=== PATIENT | female | born 1935 | race Caucasian/White ===

== ENCOUNTER → 2016-09-06 | Outpatient (CLI) | payer OTHER, BC ==
[~2016-09-06] MED LIST: AMLO5CAP2 PO; ASPI-461 PO; HYDR25TA4 PO; LBR10 PO; MELO7.5T6 PO; TYLOTC500 PO
== END | disposition home or self-care (01) ==
LOC: C.RDSM 10:38
PROVIDERS: ATTEND Physical Medicine & Rehabilitation Sports Medicine
DX: M17.10 Unilateral primary osteoarthritis, unspecified knee (principal); Z96.643 Presence of artificial hip joint, bilateral

== ENCOUNTER → 2017-04-06 | Outpatient (CLI) | payer OTHER, BC ==
[2017-04-06 12:20] LABS: BASO % 0.7 %; BASO ABS # 0.06 K/uL (0-0.2); EOS % 2.2 %; HEMATOCRIT 44.6 % (37-47); HEMOGLOBIN 14.2 g/dL (12.0-16.0); IG# 0.03 K/uL (0.00-0.02); LYMPH % 18.2 %; LYMPH ABS # 1.65 K/uL (1.2-3.4); MEAN CELL VOLUME 96.7 fL (80-100); MEAN CORPUSCULAR HEMOGLOBIN 30.8 pg (25-34); MEAN CORPUSCULAR HGB CONC 31.8 g/dl (32-36); MEAN PLATELET VOLUME 11.1 fL (7.4-10.4); MONO % 9.7 %; MONO ABS # 0.88 K/uL (0.11-0.59); NEUT % 68.9 %; NEUT ABS # 6.25 K/uL (1.4-6.5); PLATELET COUNT 287 K/uL (130-400); RED CELL DISTRIBUTION WIDTH CV 14.7 % (11.5-14.5); WHITE BLOOD COUNT 9.07 K/uL (4.8-10.8)
[2017-04-06 12:56] LABS: ALBUMIN 3.7 gm/dl (3.4-5.0); ALT/SGPT 32 U/L (12-78); AST/SGOT 20 U/L (15-37); CREATININE 0.96 mg/dl (0.60-1.20); URIC ACID 3.7 mg/dl (2.6-7.2)
[2017-04-06 12:59] LABS: ALKALINE PHOSPHATASE 80 U/L (45-117); TOTAL PROTEIN 8.1 gm/dl (6.4-8.2)
== END | disposition home or self-care (01) ==
LOC: C.LAB1850 11:19
PROVIDERS: ATTEND Internal Medicine Rheumatology
DX: M79.604 Pain in right leg (principal); M79.605 Pain in left leg; M79.671 Pain in right foot; M79.672 Pain in left foot

== ENCOUNTER → 2017-05-24 | Outpatient (CLI) | payer OTHER, BC ==
[2017-05-24 13:22] LABS: BASO % 0.4 %; BASO ABS # 0.04 K/uL (0-0.2); EOS % 0.4 %; EOS ABS # 0.04 K/uL (0-0.5); HEMATOCRIT 45.5 % (37-47); HEMOGLOBIN 14.8 g/dL (12.0-16.0); IG# 0.08 K/uL (0.00-0.02); LYMPH % 14.4 %; MEAN CORPUSCULAR HEMOGLOBIN 30.6 pg (25-34); MEAN CORPUSCULAR HGB CONC 32.5 g/dl (32-36); MEAN PLATELET VOLUME 10.5 fL (7.4-10.4); MONO % 10.5 %; MONO ABS # 1.16 K/uL (0.11-0.59); NEUT % 73.6 %; NEUT ABS # 8.17 K/uL (1.4-6.5); PLATELET COUNT 239 K/uL (130-400); RED CELL DISTRIBUTION WIDTH CV 17.1 % (11.5-14.5); RED CELL DISTRIBUTION WIDTH SD 59.9 fL (36.4-46.3); WHITE BLOOD COUNT 11.09 K/uL (4.8-10.8)
[2017-05-24 14:07] LABS: ALBUMIN 3.4 gm/dl (3.4-5.0); ALT/SGPT 32 U/L (12-78); AST/SGOT 19 U/L (15-37); CREATININE 1.14 mg/dl (0.60-1.20); URIC ACID 5.6 mg/dl (2.6-7.2)
[2017-05-24 14:10] LABS: ALKALINE PHOSPHATASE 60 U/L (45-117); TOTAL PROTEIN 7.3 gm/dl (6.4-8.2)
== END | disposition home or self-care (01) ==
LOC: C.LAB1850 11:57
PROVIDERS: ATTEND Internal Medicine Rheumatology
DX: E79.0 Hyperuricemia without signs of inflammatory arthritis and tophaceous disease (principal); M79.604 Pain in right leg; M79.605 Pain in left leg

== ENCOUNTER → 2017-07-01 | Outpatient (CLI) | payer OTHER, BC ==
--- NOTE | 2017-07-01 12:37 | DIAGNOSTIC IMAGING REPORT ---
L FOOT MIN 3 VIEWS ROUTINE HISTORY: 81 years-old Female M10.9 Gouty [id number] Left foot [id number] acute left foot pain with history of gouty arthropathy COMPARISON: None available TECHNIQUE: 3 views of the left foot FINDINGS: The bones appear mildly demineralized. Moderate degenerative changes of the first through third metatarsophalangeal joints with moderate multidigit interphalangeal osteoarthritis. No acute fracture or dislocation identified. Severe degenerative changes about the midfoot. Large enthesophytes about the plantar and Achilles calcaneus. Mild soft tissue prominence about the lower leg and foot. There is nonspecific cortical thickening involving both the medial and lateral diaphyseal portions of the second and third metatarsals. There are periarticular lucencies with sclerotic overhanging edges involving the first through fourth possibly also involving the fifth metatarsal heads. No evidence of osteonecrosis. Periarticular calcifications about the third MTP joint are noted, likely degenerative. IMPRESSION: 1. No acute fracture. 2. Periarticular lucencies with sclerotic overhanging margins involving the first through fourth and possibly also the fifth metatarsal heads is suspicious for gout arthropathy. Correlation with laboratory analysis recommended. 3. Mild soft tissue swelling about the foot. The above report was generated using voice recognition software. It may contain grammatical, syntax or spelling errors. Electronically signed by: Billy Singletary M.D. 07/01/2017 12:36 PM Dictated Date/Time: 07/01/2017 12:30 PM
[2017-07-01 13:39] LABS: BASO % 0.2 %; BASO ABS # 0.02 K/uL (0-0.2); EOS % 0.3 %; EOS ABS # 0.03 K/uL (0-0.5); HEMATOCRIT 44.3 % (37-47); HEMOGLOBIN 14.8 g/dL (12.0-16.0); IG# 0.07 K/uL (0.00-0.02); LYMPH % 8.7 %; LYMPH ABS # 1.04 K/uL (1.2-3.4); MEAN CELL VOLUME 94.1 fL (80-100); MEAN CORPUSCULAR HEMOGLOBIN 31.4 pg (25-34); MEAN CORPUSCULAR HGB CONC 33.4 g/dl (32-36); MEAN PLATELET VOLUME 10.9 fL (7.4-10.4); MONO % 6.3 %; MONO ABS # 0.75 K/uL (0.11-0.59); NEUT % 83.9 %; NEUT ABS # 9.98 K/uL (1.4-6.5); PLATELET COUNT 278 K/uL (130-400); RED CELL DISTRIBUTION WIDTH CV 16.4 % (11.5-14.5); RED CELL DISTRIBUTION WIDTH SD 56.8 fL (36.4-46.3); WHITE BLOOD COUNT 11.89 K/uL (4.8-10.8)
[2017-07-01 14:23] LABS: ALBUMIN 3.9 gm/dl (3.4-5.0); ALT/SGPT 34 U/L (12-78); AST/SGOT 21 U/L (15-37); BLOOD UREA NITROGEN 19 mg/dl (7-18)
[2017-07-01 14:26] LABS: ALKALINE PHOSPHATASE 66 U/L (45-117); TOTAL PROTEIN 7.3 gm/dl (6.4-8.2)
== END | disposition home or self-care (01) ==
LOC: C.RAD1850 11:45
PROVIDERS: ATTEND Internal Medicine
DX: M10.9 Gout, unspecified (principal); M79.672 Pain in left foot; Z79.899 Other long term (current) drug therapy

== ENCOUNTER → 2017-07-07 | Outpatient (CLI) | payer OTHER, BC ==
[~2017-07-07] MED LIST changes: +GADAVIST IV PRN
--- NOTE | 2017-07-07 16:01 | DIAGNOSTIC IMAGING REPORT ---
L LOWER EXT JOINT COMBO CLINICAL HISTORY: 81 years-old Female presenting with M10.9 Gouty arthritis M79.672 Left foot pain, pain at the ball of foot intermittent for months, no open wound. TECHNIQUE: Multisequence, multiplanar MR imaging of the left forefoot was performed before and after the administration of intravenous contrast. IV contrast: 9 mL of Gadavist. COMPARISON: Plain radiographs from 07/01/2017 FINDINGS: Localizer images: Unremarkable. Redemonstration of marginal erosions of the first through fifth metatarsal heads, greatest in the second through the fourth. Bony edema evident at the second metatarsal head. Bony edema or cystic change also noted at the base of the proximal phalanx of the first toe. No significant fluid in the joint spaces, however, there is synovial thickening at the second and third metatarsophalangeal joints. Significant inflammatory change also evident at the second and third metatarsophalangeal joints with abnormal enhancement also extending along the dorsum of the proximal phalanges of these toes. There is also soft tissue edema along the dorsal aspect of the second metatarsophalangeal joint. Mild degenerative changes in the foot. No focal fluid collection to suggest abscess. Mild subcutaneous edema present. At the plantar aspect of the first metatarsal head, the site of clinical concern, no significant subcutaneous edema is evident. No bony edema in the sesamoids. No ligamentous abnormality or focal fluid collection. IMPRESSION: Findings remain consistent with gouty arthritis affecting all of the metatarsal heads though the second and third metatarsophalangeal joints to the greatest degree. Active inflammatory change is present. At these clinical concern, at the plantar aspect of the first metatarsal head, no significant abnormality is evident. Electronically signed by: Yoshi Jackson M.D. 07/07/2017 4:00 PM Dictated Date/Time: 07/07/2017 3:52 PM
== END | disposition home or self-care (01) ==
LOC: C.MRI 13:45
PROVIDERS: ATTEND Internal Medicine Rheumatology
DX: M10.9 Gout, unspecified (principal); M79.672 Pain in left foot

== ENCOUNTER → 2017-09-27 | Outpatient (CLI) | payer OTHER, BC ==
[~2017-09-27] MED LIST changes: -GADAVIST IV PRN
== END | disposition home or self-care (01) ==
LOC: C.LAB1850 12:15
PROVIDERS: ATTEND Internal Medicine Rheumatology
DX: M10.9 Gout, unspecified (principal); E79.0 Hyperuricemia without signs of inflammatory arthritis and tophaceous disease; M25.562 Pain in left knee